=== PATIENT | male | born 1965 | race Caucasian/White ===

== ENCOUNTER 2021-05-15 23:05 | Emergency (ER) | payer OTHER ==
[~2021-05-15] VITALS: Ht 172.7 cm; Wt 158.8 kg
--- NOTE | 2021-05-15 23:21 | NUR ---
[id number] FROM [facility] C/O DIARRHEA AND CHILLS X1HOUR. PATIENT ALERT AND ORIENTED X3. AMBULATORY WITH NON LABORED BREATHING. PLACED IN BED 14.
[2021-05-15] MEDS ORDERED: IV NS 0.9% 1,000 ML BAG IV ONE (23:30)
[2021-05-15 23:42] LABS: BASOPHILS % (AUTO) 0.1 % (0.0-2.0); EOSINOPHILS % (AUTO) 2.6 % (0.0-6.0); HEMATOCRIT 38 % (39-51); HEMOGLOBIN 12.4 g/dL (13.5-17.5); LYMPHOCYTES # (AUTO) 1.6 K/uL (0.8-4.8); LYMPHOCYTES % (AUTO) 23.4 % (20.0-44.0); MEAN CORPUSCULAR HGB CONC 33 g/dl (31.0-36.0); MEAN CORPUSCULAR VOLUME 90 fL (80-96); MONOCYTES # (AUTO) 0.6 K/uL (0.1-1.30); MONOCYTES % (AUTO) 9.8 % (2.0-12.0); NEUTROPHILS # (AUTO) 4.3 K/uL (1.8-8.9); NEUTROPHILS % (AUTO) 64.1 % (43.0-81.0); PLATELET COUNT (AUTO) 328 K/uL (150-450); RED BLOOD CELL COUNT(AUTO) 4.18 MIL/uL (4.5-6.0); WHITE BLOOD COUNT (AUTO) 6.7 K/uL (4.3-11.0)
[2021-05-15 23:48] LABS: CALCIUM, SERUM 8.7 mg/dL (8.5-10.1)
[2021-05-15 23:54] LABS: ALBUMIN 3.6 g/dL (3.4-5.0); BILIRUBIN,DIRECT 0.1 mg/dL (0.0-0.2); BILIRUBIN,TOTAL 0.5 mg/dL (0.2-1.0); TOTAL PROTEIN, SERUM 7.5 g/dL (6.4-8.2)
[2021-05-16 01:08] VITALS: BP 145/70
--- NOTE | 2021-05-16 01:08 | NUR ---
Patient discharged to home in stable condition. Written and verbal after care instructions given. Patient verbalizes understanding of instruction.
== END 2021-05-16 01:10 | disposition home or self-care (01) ==
LOC: ER 23:08
DX: R19.7 Diarrhea, unspecified (principal); Z59.01 Sheltered homelessness; R03.0 Elevated blood-pressure reading, without diagnosis of hypertension; R68.83 Chills (without fever); Z20.822 Contact with and (suspected) exposure to COVID-19
CPT/HCPCS: 36415; 80048; 80076; 83690; 85025; 87426; 96360; 96361; 99283; C9803; J7030

== ENCOUNTER 2021-06-01 22:11 | Emergency (ER) | payer OTHER ==
[~2021-06-01] VITALS: Ht 172.7 cm; Wt 158.8 kg
[2021-06-01 22:45] VITALS: BP 156/84
--- NOTE | 2021-06-01 23:40 | NUR ---
PER LAB, COVID IS POSITIVE. NOTIFIED
--- NOTE | 2021-06-01 23:40 | NUR ---
PER LAB, COVID IS POSITIVE. NOTIFIED
--- NOTE | 2021-06-01 23:56 | NUR ---
Patient discharged to home in stable condition. Written and verbal after care instructions given. Patient verbalizes understanding of instruction.
--- NOTE | 2021-06-01 23:56 | NUR ---
Patient discharged to home in stable condition. Written and verbal after care instructions given. Patient verbalizes understanding of instruction.
== END 2021-06-02 00:24 | disposition home or self-care (01) ==
LOC: ER 22:15
DX: U07.1 COVID-19 (principal); Z59.01 Sheltered homelessness; E66.01 Morbid (severe) obesity due to excess calories; Z68.43 Body mass index [BMI] 50.0-59.9, adult
CPT/HCPCS: 87426; 99283; C9803

== ENCOUNTER 2022-06-08 18:50 | Emergency (ER) | payer OTHER ==
[~2022-06-08] VITALS: Ht 172.7 cm; Wt 165.6 kg
--- NOTE | 2022-06-08 19:00 | NUR ---
[id number] C/O PRODUCTIVE COUGH X 8 DAYS. DENIES SOB OR CP. AFEBRILE. PICKED UP FROM [facility]. PLACED IN BED, AAOX4, BREATHING UNLABORED SATURATING AT 98%RA.
--- NOTE | 2022-06-08 19:10 | NUR ---
X-RAY TECH AT BEDSIDE
[2022-06-08 19:45] VITALS: BP 135/89
--- NOTE | 2022-06-08 19:45 | NUR ---
Patient discharged to home in stable condition. Written and verbal after care instructions given. Patient verbalizes understanding of instruction.
== END 2022-06-08 19:45 | disposition home or self-care (01) ==
LOC: ER 18:53
DX: J06.9 Acute upper respiratory infection, unspecified (principal); E66.01 Morbid (severe) obesity due to excess calories; Z68.43 Body mass index [BMI] 50.0-59.9, adult; Z90.89 Acquired absence of other organs; Z59.00 Homelessness unspecified
CPT/HCPCS: 71045-TC

== ENCOUNTER 2022-09-22 22:08 | Emergency (ER) | payer OTHER ==
[~2022-09-22] VITALS: Ht 172.7 cm; Wt 154.2 kg
--- NOTE | 2022-09-22 22:19 | NUR ---
PT [id number] FROM [facility] C/O NAUSEA X1HR. PT AAOX4, IN NAD, PLACED COMFORTABLY IN BED, VITALS CHECKED.
[2022-09-22] MEDS ORDERED: ONDANSETRON 4 MG TAB.RAPDIS ONE (22:29)
[2022-09-22] MEDS ORDERED: ONDANSETRON 4 MG TAB.RAPDIS SL ONE (22:30)
[2022-09-22] MEDS ORDERED: ONDA4TAB5 PO (23:07)
--- NOTE | 2022-09-22 23:30 | NUR ---
Note [email or web address] in EDM - 09/22/22 at 2349 by DANII REVIEWED DC INSTRUCTIONS WITH PATIENT, STATES HE'S HERE FOR NAUSEA, BUT ALSO CELLULITIES OF HIS LEs. PT STATES BLEs NOTED TO HAVE NO OPEN LESIONS, DOES NOT APPEAR TO HAVE ANY REDNESS. NOTIFIED. SECURITY NOTIFIED.
--- NOTE | 2022-09-22 23:30 | NUR ---
REVIEWED DC INSTRUCTIONS WITH PATIENT WHO REFUSED TO SIGN DC INSTRUCTIONS.
[2022-09-22 23:42] VITALS: BP 170/96
--- NOTE | 2022-09-22 23:51 | NUR ---
Patient discharged to home in stable condition.
== END 2022-09-22 23:42 | disposition home or self-care (01) ==
LOC: ER 22:09
DX: R11.0 Nausea (principal); Z90.89 Acquired absence of other organs; Z59.00 Homelessness unspecified
CPT/HCPCS: 99283; Q0162